=== PATIENT | male | born 1975 | race Caucasian/White ===

== ENCOUNTER → 2020-09-27 08:44 | Outpatient (CLI) | payer BC, SELFPAY ==
--- NOTE | 2020-09-27 08:55 | US_ITS ---
PROCEDURE: US GALLBLADDER CLINICAL INDICATION: UPPER ABD PAIN,UNSPECIFIED COMPARISON: No exams were available for comparison FINDINGS: Pancreas: Unremarkable though portion of the tail is obscured by bowel gas. Liver: Unremarkable. There is appropriate direction of blood flow within a non dilated portal vein. Right kidney: The right kidney measures 12.8 x 5.4 by 9.0 cm and appears sonographically normal. Gallbladder: The gallbladder is normal in size and shows partial septation near the neck. There is a trace amount of biliary sludge noted but no gallstones are seen. The common bile duct is normal in caliber. IMPRESSION: Trace biliary sludge otherwise essentially unremarkable study Dictated by: Dr. Bi Armenta MD 09/27/2020 13:43 Dr. Bi Armenta MD in [place] 09/27/2020 13:43
[2020-09-27 09:16] LABS: Basophils # 0.1 K/mm3 (0-0.2); Basophils % 0.9 % (0.1-2.0); Eosinophils # 0.5 K/mm3 (0.0-0.4); Eosinophils % 6.5 % (0.1-12.0); Hematocrit 48.9 % (42.0-52.0); Hemoglobin 16.3 g/dL (14.1-18.0); Lymphocytes # 2.1 K/mm3 (0.7-4.5); Lymphocytes % 26.2 % (10-50); Mean Corpuscular HGB Conc 33.3 g/dL (31.8-35.4); Mean Corpuscular Hemoglobin 30.6 pg (27.0-31.2); Mean Corpuscular Volume 91.9 fl (80-94); Mean Platelet Volume 7.9 fl (7.4-10.4); Monocytes # 0.4 K/mm3 (0.1-1.0); Monocytes % 5.4 % (1.7-9.3); Neutrophils # 4.9 K/mm3 (1.8-7.8); Platelet Count 323 K/mm3 (142-424); Red Blood Count 5.33 M/mm3 (4.60-6.20); Red Cell Distribution Width 12.8 % (11.5-17.5)
[2020-09-27 09:22] LABS: Alanine Aminotransferase 16 U/L (12-78); Albumin Level 4.3 g/dl (3.5-5.0); Albumin/Globulin Ratio 1.4 (1.1-1.8); Alkaline Phosphatase 72 U/L (38-126); Amylase 65 U/L (30-110); Aspartate Amino Transferase 26 U/L (17-59); Bilirubin,Total 0.4 mg/dl (0.2-1.3); Blood Urea Nitrogen 6 mg/dl (9-20); Calcium 9.7 mg/dl (8.4-10.2); Carbon Dioxide 31 mmol/L (22.0-30.0); Chloride 106 mmol/L (98-107); Estimated Glomerular Filt Rate 91 ml/min (>60); GFR (African American) 110 ML/MIN (>60); Globulin 3.1 g/dL (1.3-3.2); Glucose 109 mg/dl (74-100); Lipase 150 U/L (23-300); Sodium 141 mmol/L (136-145); Total Protein,Serum 7.4 g/dl (6.3-8.2)
[2020-09-28 14:59] LABS: H. pylori Breath Test Negative (Negative)
== END ==
PROVIDERS: Visit Provider Nurse Practitioner Family
DX: R10.10 Upper abdominal pain, unspecified (principal)
CPT/HCPCS: 36415; 76705; 80053; 82150; 83013; 83690; 85025

== ENCOUNTER 2021-12-03 20:26 | Inpatient (IN) | payer BC, SELFPAY ==
[2021-12-03] VITALS (9 sets, daily range): BP systolic 142–181; BP diastolic 97–110; PULSE 70–90; RESP 14–18; TEMP 36.7–36.9; O2SAT 94–99; BMI 24.3; BMI 24.0
--- NOTE | 2021-12-03 20:32 | ECG_ITS ---
APPROVED REPORT Exam: Resting ECG HR:91 bpm ECG Measurements Heart Rate 91 AXES KS 140 P 77 QRSd 101 QRS 71 QT 351 T 46 QTc 400 Conclusion SINUS RHYTHM WITH SINUS ARRHYTHMIA NORMAL ECG UNCONFIRMED REPORT Electronically signed by : Tee Eisenberg MD 12/05/2021 21:11:11
--- NOTE | 2021-12-03 20:32 | XR_ITS ---
PROCEDURE INFORMATION: Exam: XR Chest Exam date and time: 12/03/2021 8:32 PM Age: 46 years old Clinical indication: Sternal or substernal pain; Additional info: Chest pain TECHNIQUE: Imaging protocol: XR of the chest. Views: 2 views. COMPARISON: No relevant prior studies available. FINDINGS: Lungs: Stigmata of old granulomatous disease. Pleural spaces: Unremarkable. No pleural effusion. No pneumothorax. Heart/Mediastinum: Unremarkable. No cardiomegaly. Bones/joints: Unremarkable. IMPRESSION: No acute findings.
--- NOTE | 2021-12-03 20:40 | PC.NURSE ---
pt going to xray at this time
--- NOTE | 2021-12-03 20:40 | HMH.EDCP ---
ED Disposition Clinical Impression: Unstable angina pectoris, Tobacco use, Elevated troponin Hyperlipidemia Qualifiers: Hyperlipidemia type: unspecified Qualified Code(s): E78.5 - Hyperlipidemia, unspecified Disposition: Admitted As Inpatient Condition on Discharge: Good Referrals: Provider,Referral, [Primary Care Provider] - - Critical Care Critical Care Time: No Attestation: On , the high probability of a clinically significant, sudden or life threatening deterioration of the following system(s) required my full and direct attention, intervention and personal management. The time I documented below is in addition to time spent performing reported procedures but includes the following listed in this critical care notation. Medical Decision Making - Medical Records Medical records reviewed: Yes: I reviewed the patient's medical records. - [place] Inquiry Pt receiving controlled substance: No Vital Signs: 12/03/21 20:26 12/03/21 20:51 12/03/21 21:00 Temperature 98.1 F Temperature Source Oral Pulse Rate 79 79 Pulse Rate [Left Radial] 90 Respiratory Rate 16 15 16 Blood Pressure 152/98 H 142/101 H Blood Pressure [Left Arm] 181/110 H Blood Pressure Mean Blood Pressure Mean [Left Arm] 133 02 Sat by Pulse Oximetry 99 98 99 Oxygen Delivery Method Room Air Room Air Room Air 12/03/21 21:13 12/03/21 21:19 Temperature Temperature Source Pulse Rate 77 84 Pulse Rate [Left Radial] Respiratory Rate 14 15 Blood Pressure 164/109 H 158/99 H Blood Pressure [Left Arm] Blood Pressure Mean 124 118 Blood Pressure Mean [Left Arm] 02 Sat by Pulse Oximetry 99 99 Oxygen Delivery Method - Lab Data Lab results reviewed: Yes: I reviewed the patient's lab results. Lab Results 12/03/21 20:37: WBC 11.8 H, RBC 5.19, Hgb 16.0, Hct 47.9, MCV 92.2, MCH 30.7, MCHC 33.3, RDW 13.2, Plt Count 388, MPV 8.1, Neut % (Auto) 66.2, Lymph % (Auto) 21.3, [place] % (Auto) 4.9, Eos % (Auto) 4.5, Baso % (Auto) 3.2 H, Neut # (Auto) 7.8, Lymph # (Auto) 2.5, [place] # (Auto) 0.6, Eos # (Auto) 0.5 H, Baso # (Auto) 0.4 H 12/03/21 20:37: Sodium 137, Potassium 3.1 L, Chloride 97 L, Carbon Dioxide 31 H, Anion Gap 12.1, BUN 7 L, Creatinine 0.70, Estimated Creat Clear 130, Estimated GFR 121, Est GFR ( Amer) 146, Glucose 111 H, Calcium 9.9, Total Bilirubin 0.4, Direct Bilirubin 0.2, Conjugated Bilirubin 0.0, Indirect Bilirubin 0.2, Unconjugated Bilirubin 0.2, AST 23, ALT 19, Alkaline Phosphatase 67, Troponin I 0.08 H, C-Reactive Protein 1.3, Total Protein 7.2, Albumin 4.2 12/03/21 20:37: ESR 7 12/03/21 20:37: Procalcitonin 0.050 12/03/21 20:37: Triglycerides 290 H, Cholesterol 227 H, LDL Cholesterol Direct 147.66 H, VLDL Cholesterol 58 H, HDL Cholesterol 38 L, Cholesterol/HDL Ratio 6.0 H Result diagrams: 12/03/21 20:37 12/03/21 20:37 Orders (Tests/Meds): ED MEDICATIONS Generic Name Dose Route Start Last Admin Trade Name Freq PRN Reason Stop Dose Admin Sodium Chloride 1,000 mls @ 999 mls/hr 12/03/21 20:45 12/03/21 20:39 Sod Chlor 0.9% 1000ml Bag IV 12/03/21 21:45 999 mls/hr .[id number] JESSICA Administration Discontinued Medications Generic Name Dose Route Start Last Admin Trade Name Freq PRN Reason Stop Dose Admin Aspirin 324 mg 12/03/21 20:34 12/03/21 20:39 Aspirin 81mg Chewable Tablet PO 12/03/21 20:35 324 mg ONCE ONE Administration Nitroglycerin 1 gm 12/03/21 21:25 12/03/21 21:26 Nitroglycerin 1 Gm Ointment TD 12/03/21 21:26 1 gm ONCE ONE Administration ORDERS Category Date Time Status Troponin I Q3H Lab 12/03/21 23:45 Ordered Troponin I Q3H Lab 12/04/21 02:45 Ordered - ECG Data Tracing #1 Normal Sinus Rhythm: Yes Ischemic changes: non-specific ST-T wave changes - Physician Consults Physician Consulted: maria fernanda Reason -: Pt condition Medical Decision Narrative: has sx consistent with angina witrh sig risk factors and elevated trop and will admit w
--- NOTE | 2021-12-03 20:42 | PC.NURSE ---
pt back from [facility] ER dr speaking with pt at this time
[2021-12-03 20:48] LABS: Basophils # 0.4 K/mm3 (0-0.2); Basophils % 3.2 % (0.1-2.0); Eosinophils # 0.5 K/mm3 (0.0-0.4); Eosinophils % 4.5 % (0.1-12.0); Hematocrit 47.9 % (42.0-52.0); Lymphocytes # 2.5 K/mm3 (0.7-4.5); Lymphocytes % 21.3 % (10-50); Mean Corpuscular HGB Conc 33.3 g/dL (31.8-35.4); Mean Corpuscular Hemoglobin 30.7 pg (27.0-31.2); Mean Corpuscular Volume 92.2 fl (80-94); Mean Platelet Volume 8.1 fl (7.4-10.4); Monocytes # 0.6 K/mm3 (0.1-1.0); Monocytes % 4.9 % (1.7-9.3); Neutrophils # 7.8 K/mm3 (1.8-7.8); Neutrophils % 66.2 % (37.0-80.0); Platelet Count 388 K/mm3 (142-424); Red Blood Count 5.19 M/mm3 (4.60-6.20); Red Cell Distribution Width 13.2 % (11.5-17.5); White Blood Count 11.8 K/mm3 (4.8-10.8)
[2021-12-03 20:58] LABS: Alanine Aminotransferase 19 U/L (12-78); Albumin Level 4.2 g/dl (3.5-5.0); Alkaline Phosphatase 67 U/L (38-126); Anion Gap 12.1 mEq/L (5-15); Aspartate Amino Transferase 23 U/L (17-59); Bilirubin,Direct 0.2 mg/dl (0.0-0.4); Bilirubin,Indirect 0.2 mg/dL (0.0-0.9); Bilirubin,Total 0.4 mg/dl (0.2-1.3); Bilirubin,Unconjugated 0.2 mg/dL (0.0-1.1); Blood Urea Nitrogen 7 mg/dl (9-20); Calcium 9.9 mg/dl (8.4-10.2); Carbon Dioxide 31 mmol/L (22.0-30.0); Chloride 97 mmol/L (98-107); Creatinine Clearance Estimated 130 mL/min (50-200); Estimated Glomerular Filt Rate 121 ml/min (>60); GFR (African American) 146 ML/MIN (>60); Glucose 111 mg/dl (74-100); Potassium 3.1 mmoL/L (3.5-5.1); Sodium 137 mmol/L (136-145); Total Protein,Serum 7.2 g/dl (6.3-8.2)
[2021-12-03 21:00] LABS: Cholesterol 227 mg/dl (140-200); HDL Cholesterol 38 mg/dl (40-60); Triglycerides 290 mg/dl (30-150); VLDL Cholesterol 58 mg/dL (0-40)
[2021-12-03 21:03] LABS: C-Reactive Protein 1.3 mg/L (0-4)
[2021-12-03 21:10] LABS: Direct LDL Cholesterol 147.66 mg/dL (100-129)
[2021-12-03 21:12] LABS: Troponin I 0.08 ng/ml (0.00-0.034)
[2021-12-03 21:14] LABS: Erythrocyte Sedimentation Rate 7 mm/hr (0-15)
[2021-12-03 21:58] LABS: Coronavirus 19, PCR Not Detected (NotDetected)
[2021-12-03 21:59] LABS: Influenza A, PCR Not Detected (NotDetected); Influenza B, PCR Not Detected (NotDetected)
--- NOTE | 2021-12-03 22:33 | PC.NURSE ---
patient up to floor via wheelchair @ this time.
[2021-12-04] VITALS (20 sets, daily range): BP systolic 97–154; BP diastolic 57–95; PULSE 56–78; RESP 16–30; TEMP 36.4–36.8; O2SAT 95–100
--- NOTE | 2021-12-04 | IR_ITS ---
APPROVED REPORT Patient Location: Inpatient Dairy Manufacturing Technologist: HAI Olmedo RT (R) PROCEDURES Left heart catheterization Left ventriculogram Selective coronary angiogram INDICATION Elevated troponin/acute coronary syndrome Informed consent was obtained prior to the procedure. COMPLICATIONS None Estimated Blood Loss: Less than 10 mls TECHNIQUE One percent lidocaine used to anesthetize the right anterior aspect of the wrist. The right radial artery was accessed via the Seldinger technique. A 6 Chinese sheath was placed in the right radial artery. 2.5 mg of verapamil, 800 mcg of nitroglycerin, 1mg Lidocaine and 5000 U Heparin were given through the arterial sheath. The papa catheter was also used to perform left heart catheterization, left ventriculogram and selective coronary angiogram. At the end of the procedure the sheath was removed good hemostasis was achieved using Traclet band, patient was transferred to the postop holding area in stable condition. ANGIOGRAPHIC RESULTS The left main artery Normal The left anterior descending artery Has a proximal eccentric 30 to 40% stenosis with mild mid vessel 10 to 20% stenoses. A large first diagonal artery has a proximal to mid vessel 40% stenosis The circumflex artery Is codominant and has proximal to mid vessel 30% stenoses The right coronary artery Is codominant and has a mid vessel hazy 30 to 40% stenosis The MCKEON ventriculogram reveals Preserved at 55 to 60% The left ventricular end-diastolic pressure 10 mmHg IMPRESSION Minor coronary artery disease as described above accompanied by three-vessel JOHN-3 flow Preserved ejection fraction Normal left ventricular end-diastolic pressure PLAN 1. Aspirin 81 mg a day plus Plavix 75 mg daily for 1 year 2. LDL less than 55 to be achieved with high intensity statin 3. Medical management for the time being. Patient in acute coronary syndrome with elevated troponin therefore I do not recommend FFR interrogation as is not indicated in this particular patient. Given his JOHN-3 flow with coronary artery disease as described above I believe this is best managed medically for the time being. Start low-dose beta-blockers and JUANA inhibitor's if blood pressure will tolerate 4. In 4 weeks recommend exercise Myoview to determine if inferior or anterior ischemia is present 5. Immediate avoidance of tobacco products Electronically signed by : Edouard Hooks MD 12/04/2021 13:01:06
[2021-12-04 00:17] LABS: Troponin I 0.11 ng/ml (0.00-0.034)
[2021-12-04 03:04] LABS: Basophils # 0.3 K/mm3 (0-0.2); Basophils % 2.6 % (0.1-2.0); Eosinophils # 0.5 K/mm3 (0.0-0.4); Eosinophils % 4.8 % (0.1-12.0); Hematocrit 47.2 % (42.0-52.0); Hemoglobin 15.3 g/dL (14.1-18.0); Lymphocytes # 2.9 K/mm3 (0.7-4.5); Lymphocytes % 26.7 % (10-50); Mean Corpuscular HGB Conc 32.5 g/dL (31.8-35.4); Mean Corpuscular Hemoglobin 30.1 pg (27.0-31.2); Mean Corpuscular Volume 92.6 fl (80-94); Mean Platelet Volume 8.2 fl (7.4-10.4); Monocytes # 0.6 K/mm3 (0.1-1.0); Monocytes % 5.6 % (1.7-9.3); Neutrophils # 6.5 K/mm3 (1.8-7.8); Neutrophils % 60.2 % (37.0-80.0); Platelet Count 347 K/mm3 (142-424); Red Blood Count 5.09 M/mm3 (4.60-6.20); Red Cell Distribution Width 13.3 % (11.5-17.5); White Blood Count 10.8 K/mm3 (4.8-10.8)
[2021-12-04 03:13] LABS: Chloride 106 mmol/L (98-107); Sodium 139 mmol/L (136-145)
[2021-12-04 03:14] LABS: Potassium 3.5 mmoL/L (3.5-5.1)
[2021-12-04 03:16] LABS: Anion Gap 7.5 mEq/L (5-15); Blood Urea Nitrogen 6 mg/dl (9-20); Calcium 9.7 mg/dl (8.4-10.2); Carbon Dioxide 29 mmol/L (22.0-30.0); Creatinine Clearance Estimated 129 mL/min (50-200); Estimated Glomerular Filt Rate 121 ml/min (>60); GFR (African American) 146 ML/MIN (>60); Glucose 117 mg/dl (74-100)
[2021-12-04 03:17] LABS: Magnesium 1.5 mg/dl (1.6-2.3)
[2021-12-04 03:29] LABS: Troponin I 0.14 ng/ml (0.00-0.034)
--- NOTE | 2021-12-04 06:54 | PC.NURSE ---
Pt is alert and oriented. Oriented to room and hospital policies. Pt voiced understanding to all. Call ansari within reach. Pts K+ noted low but no replacement during nightime. Pt place on LR and repeat Labs in the am. Pt able to make all needs known. Call ansari within reach
--- NOTE | 2021-12-04 07:13 | P.CONPHA_ITS ---
[facility] Pharmacy VTE Monitoring - Patient Demographics Admission date: 12/03/21 Report Date: 12/04/21 Time: 07:13 Allergies/Adverse Reactions: Patient Allergies No Known Allergies Allergy (Verified 09/01/19 12:54) Height: 1.7 m Weight: 69.672 kg Patient Problems: Current Active Problems Unstable angina pectoris (Acute) Tobacco use (Acute) Hyperlipidemia (Acute) Elevated troponin (Acute) - VTE Risk Labs: VTE Related Lab Results Hgb 15.3 g/dL (14.1-18.0) 12/04/21 02:55 Hct 47.2 % (42.0-52.0) 12/04/21 02:55 Plt Count 347 K/mm3 (142-424) 12/04/21 02:55 BUN 6 mg/dl (9-20) L 12/04/21 02:55 Creatinine 0.70 mg/dl (0.66-1.25) 12/04/21 02:55 Estimated Creat Clear 129 mL/min (50-200) 12/04/21 02:55 Was VTE Risk Assessment Performed: Yes VTE Score: 1 VTE Risk Level: Very Low Risk - Prophylaxis VTE Prophylaxis Ordered?: Yes Types of VTE Prophylaxis: TEDS Knee High Location of Applied Device: Bilateral Lower Extremeties
--- NOTE | 2021-12-04 07:34 | HMH.CNCARD ---
History of Present Illness Consult date: 12/04/21 Requesting physician: Alexei Garza Consult reason: chest pain Chief complaint: NSTEMI Additional Medical History:: 1. Ongoing tobacco use of 1 pack/day for at least 20 years 2. Untreated hypertension 3. Family history of cardiovascular disease with father having a stroke and mother having an enlarged heart 4. Hyperlipidemia 5. Non-ST elevation [place], 12/03/2021 A. Echocardiogram preliminary shows decreased septal wall motion with EF 45-50% History of present illness: 46-year-old white male presented to the emergency department for 2-day history of intermittent chest discomfort radiating to the neck and the jaw and into the back of the head. Symptoms would last less than 5 minutes each time but would recur with activity. He denies any nausea, vomiting or diaphoresis. Evaluation in the emergency room revealed elevated troponins and patient was subsequently admitted for unstable angina/non-ST elevation [place]. He was started on nitroglycerin paste with no further chest pain overnight. EKG is sinus rhythm with poor R wave progression anteriorly. Preliminary echocardiogram shows mildly decreased EF at about 45-50% with septal wall motion abnormality. [facility] History Medical History: Denies:: Cancer, Diabetes Mellitus Type 1, Diabetes Mellitus Type 2, Internal Pacemaker, MRSA *Have you ever received a pneumonia vaccine?: No *Have you received a flu vaccine this season?: Yes Laterality Cases: Right: Carpal Tunnel Release Other Surgeries: No: Pacemaker Amputation: No Fractures: Yes (ELBOW AND HAND) - *Social History Last grade of school completed: Some college Smoking Status: Current every day smoker Tobacco Type: cigarettes # Packs/Day (cigarettes): 1 Alcohol Intake: never *Occupational Status:: employed Housing: house Household Members: spouse, children, caregiver, adopted family *Travel in the last 8 weeks: None Family Hx:: Diabetes, Hyperlipidemia, Hypertension, Stroke Meds Home Medications Medication Instructions Recorded Confirmed Type No Known Home Medications 12/03/21 12/03/21 History Allergies Allergy/AdvReac Type Severity Reaction Status Date / Time No Known Allergies Allergy Verified 09/01/19 12:54 Exam Vital signs and Labs for Last 24 Hours: Temp Pulse Resp BP Pulse Ox 98.1 F 70 18 132/76 97 12/04/21 03:52 12/04/21 04:00 12/04/21 03:52 12/04/21 03:52 12/04/21 03:52 Laboratory Results - last 24 hr 12/03/21 20:37: WBC 11.8 H, RBC 5.19, Hgb 16.0, Hct 47.9, MCV 92.2, MCH 30.7, MCHC 33.3, RDW 13.2, Plt Count 388, MPV 8.1, Neut % (Auto) 66.2, Lymph % (Auto) 21.3, [place] % (Auto) 4.9, Eos % (Auto) 4.5, Baso % (Auto) 3.2 H, Neut # (Auto) 7.8, Lymph # (Auto) 2.5, [place] # (Auto) 0.6, Eos # (Auto) 0.5 H, Baso # (Auto) 0.4 H 12/03/21 20:37: Sodium 137, Potassium 3.1 L, Chloride 97 L, Carbon Dioxide 31 H, Anion Gap 12.1, BUN 7 L, Creatinine 0.70, Estimated Creat Clear 130, Estimated GFR 121, Est GFR ( Amer) 146, Glucose 111 H, Calcium 9.9, Total Bilirubin 0.4, Direct Bilirubin 0.2, Conjugated Bilirubin 0.0, Indirect Bilirubin 0.2, Unconjugated Bilirubin 0.2, AST 23, ALT 19, Alkaline Phosphatase 67, Troponin I 0.08 H, C-Reactive Protein 1.3, Total Protein 7.2, Albumin 4.2 12/03/21 20:37: ESR 7 12/03/21 20:37: Procalcitonin 0.050 12/03/21 20:37: Triglycerides 290 H, Cholesterol 227 H, LDL Cholesterol Direct 147.66 H, VLDL Cholesterol 58 H, HDL Cholesterol 38 L, Cholesterol/HDL Ratio 6.0 H 12/03/21 21:48: SARS-CoV-2 (PCR) Not detected, Influenza A Untype (PCR) Not detected, Influenza Type B (PCR) Not detected 12/03/21 23:50: Troponin I 0.11 H 12/04/21 02:55: Troponin I 0.14 H 12/04/21 02:55: WBC 10.8, RBC 5.09, Hgb 15.3, Hct 47.2, MCV 92.6, MCH 30.1, MCHC 32.5, RDW 13.3, Plt Count 347, MPV 8.2, Neut % (Auto) 60.2, Lymph % (Auto) 26.7, [place] % (Auto) 5.6, Eos % (Auto) 4.8, Baso % (Auto) 2.6 H, Neut # (Auto) 6.5, Lymph # (Auto) 2.9, [place] # (Auto) 0.6, Eos #
--- NOTE | 2021-12-04 08:00 | CA_ITS ---
APPROVED REPORT EXAM: Comprehensive 2D, Doppler, and color-flow Echocardiogram [employer] Operator: Marissa Link, RCS, RVS Ht: 5 ft 7 in Wt: 153lbs BSA: 1.80 BP: 158/99 mmHg Indications: CP radiating jaw pain, Elevated troponin, Smoker 2D Dimensions IVSd 0.88 cm LVEF (Visual) 45.00 % PWd 1.14 cm LA Volume 38.90 mL LVDd 5.02 cm LA Volume Index 21.60 mL/m2 (M/F) 16-34 LVDs 3.47 cm Aortic Root 3.08 cm Left Atrium 3.30 cm LVOT 1.96 cm (M/F) 1.5-2.5 M-Mode Dimensions RVDd 1.10 cm (0.9-2.6) LA Diam 3.34 cm (1.9-4.0) LVDd 5.38 cm (3.5-5.7) Ao Diam 3.01 cm (2.0-3.7) LVDs 3.92 cm (3.5-5.7) IVSd 1.03 cm (0.6-1.1) PWd 1.14 cm (0.6-1.1) EF (Teich) 52.40% EPSs 2.04 cm FS 27.10% EDV (Teich) 140.10 mL ESV (Teich) 66.70 mL LV Diastology E Decel Time 173.00 (160-240 msec) E/A Ratio 1.20 MED E' 7.30 (< 7 cm/sec) MED A' 8.40 cm/s E'/MED E' Ratio 10.58 (>14) LAT E' 10.50 (<10 cm/sec) LAT A' 8.10 cm/s E/LAT E' Ratio 7.35 (>14) Aortic Valve LVOT Max 94.00 (70-110 cm/s) LVOT VTI 19.24 cm AoV Peak Giacomo. 121.00 (50-130 cm/s) AO Peak GR. 5.90 mmHg AO Mean GR. 3.00 (<5 mmHg) AO VTI 24.63 (18-25 cm) MINH (VTI) 2.36 (2.5-4.5 cm2) Mitral Valve MV A Velocity 64.00 (40-130 cm/s) E/A Ratio 1.20 MV Decel. Time 173.00 (160-240 ms) Pulmonary Valve PV Peak Velocity 63.00 (50-150 cm/s) Left Ventricle Left atrium is mildly enlarged, left ventricle is normal size, there is no concentric left ventricular hypertrophy, estimated ejection fraction 50%, there appears to be mild hypokinesis involving the interventricular septum. Diastolic parameters are within normal range. Right Ventricle Right atrium and right ventricle are mildly enlarged with normal contractility. Aortic Valve Aortic valve is minimally thickened and fibrosed there is no aortic stenosis or aortic insufficiency. Mitral Valve Mitral valve grossly normal, there is trace mitral regurgitation. Tricuspid Valve Tricuspid valve grossly normal, there is trace tricuspid regurgitation, tricuspid regurgitation jet velocity is inadequate for calculation of the right ventricular systolic pressure. Pulmonic Valve Pulmonic valve is poorly visualized. Great Vessels Aortic root is normal size. Inferior vena cava is normal size with normal spectral collapse. Pericardium No significant pericardial effusion noted. Conclusion 1. Mild biatrial enlargement, normal left ventricular size, estimated ejection fraction 50% with segmental wall motion abnormality described above, diastolic parameters are within normal range. 2. Mildly enlarged right ventricle with normal contractility. 3. Trace mitral and tricuspid regurgitation. 4. No significant pericardial effusion. 5. Inferior vena cava is normal size with normal inspiratory collapse. Electronically signed by : Clement Almazan MD 12/04/2021 10:01:31
--- NOTE | 2021-12-04 14:45 | HMH.HPDC ---
General - General Admission date:: 12/03/21 Discharge date: 12/04/21 *Admission Date: 12/03/21 *Chief complaint: chest pain *History of present illness: 46-year-old male presented to the emergency department for 2-day history of intermittent chest discomfort radiating to the neck and the jaw and into the back of the head. Pt states symptoms for about 5 minutes each time but would return with activity. He denies any nausea, vomiting or diaphoresis. Emergency room revealed elevated troponins and patient was admitted for unstable angina/non-ST elevation [place]. He was started on nitroglycerin paste with no further chest pain overnight. cardiology consult [facility] History I have reviewed the patient's past medical history: Yes Medical History: Denies:: Cancer, Diabetes Mellitus Type 1, Diabetes Mellitus Type 2, Internal Pacemaker, MRSA *Have you ever received a pneumonia vaccine?: No *Have you received a flu vaccine this season?: Yes Laterality Cases: Right: Carpal Tunnel Release Other Surgeries: No: Pacemaker Amputation: No Fractures: Yes (ELBOW AND HAND) - *Social History Last grade of school completed: Some college Smoking Status: Current every day smoker Tobacco Type: cigarettes # Packs/Day (cigarettes): 1 Alcohol Intake: never *Occupational Status:: employed Housing: house Household Members: spouse, children, caregiver, adopted family *Travel in the last 8 weeks: None Family Hx:: Diabetes, Hyperlipidemia, Hypertension, Stroke Review of Systems - Review of Systems Review of systems:: pertinent systems reviewed and negative unless documented below - Constitutional Denies body ache(s) - Eyes Denies blurry vision - ENT Denies bleeding gums - *Cardiovascular Reports chest pain, Reports chest pain at rest, Reports chest pain with activity - *Respiratory Denies chest congestion - *Gastrointestinal Denies change in bowel habits - *Genitourinary Denies urinary hesitancy - *Musculoskeletal Denies joint pain - Integumentary/Breasts Denies bleeding lesions - *Neurologic Denies abnormal hearing, Denies headache(s), Denies seizure-like activity - Psychiatric Denies abnormal sleep pattern - Endocrine Denies excessive sweating - Hematologic/Lymphatic Denies easy bruising - Allergic/Immunologic Denies itchy eyes Exam Vital signs and Labs for Last 24 Hours: Temp Pulse Resp BP Pulse Ox 98.1 F 56 L 20 117/78 97 12/04/21 13:45 12/04/21 14:15 12/04/21 14:15 12/04/21 14:15 12/04/21 14:15 Laboratory Results - last 24 hr 12/03/21 20:37: WBC 11.8 H, RBC 5.19, Hgb 16.0, Hct 47.9, MCV 92.2, MCH 30.7, MCHC 33.3, RDW 13.2, Plt Count 388, MPV 8.1, Neut % (Auto) 66.2, Lymph % (Auto) 21.3, [place] % (Auto) 4.9, Eos % (Auto) 4.5, Baso % (Auto) 3.2 H, Neut # (Auto) 7.8, Lymph # (Auto) 2.5, [place] # (Auto) 0.6, Eos # (Auto) 0.5 H, Baso # (Auto) 0.4 H 12/03/21 20:37: Sodium 137, Potassium 3.1 L, Chloride 97 L, Carbon Dioxide 31 H, Anion Gap 12.1, BUN 7 L, Creatinine 0.70, Estimated Creat Clear 130, Estimated GFR 121, Est GFR ( Amer) 146, Glucose 111 H, Calcium 9.9, Total Bilirubin 0.4, Direct Bilirubin 0.2, Conjugated Bilirubin 0.0, Indirect Bilirubin 0.2, Unconjugated Bilirubin 0.2, AST 23, ALT 19, Alkaline Phosphatase 67, Troponin I 0.08 H, C-Reactive Protein 1.3, Total Protein 7.2, Albumin 4.2 12/03/21 20:37: ESR 7 12/03/21 20:37: Procalcitonin 0.050 12/03/21 20:37: Triglycerides 290 H, Cholesterol 227 H, LDL Cholesterol Direct 147.66 H, VLDL Cholesterol 58 H, HDL Cholesterol 38 L, Cholesterol/HDL Ratio 6.0 H 12/03/21 21:48: SARS-CoV-2 (PCR) Not detected, Influenza A Untype (PCR) Not detected, Influenza Type B (PCR) Not detected 12/03/21 23:50: Troponin I 0.11 H 12/04/21 02:55: Troponin I 0.14 H 12/04/21 02:55: WBC 10.8, RBC 5.09, Hgb 15.3, Hct 47.2, MCV 92.6, MCH 30.1, MCHC 32.5, RDW 13.3, Plt Count 347, MPV 8.2, Neut % (Auto) 60.2, Lymph % (Auto) 26.7, [place] % (Auto) 5.6, Eos % (Auto) 4.8, Baso % (Auto)
--- NOTE | 2021-12-04 15:21 | HMH.PHAINT ---
DISCHARGE MEDICATION COUNSELING PROVIDED. DISCUSSED THE FOLLOWING MEDICATIONS: -NICOTINE PATCHES (PATIENT HAS USED BEFORE, WATCH FOR SKIN IRRITATION) -ATORVASTATIN (TAKE AT BEDTIME, WATCH FOR MUSCLE PAIN) -BISOPROLOL (TAKE DAILY, WATCH FOR DIZZINESS, LIGHTHEADEDNESS) -IRBESARTAN (TAKE DAILY, WATCH FOR DIZZINESS, LIGHTHEADEDNESS, HEADACHE) -ASPIRIN (TAKE DAILY, WATCH FOR SIGNS/SYMPTOMS OF BLEEDING, IF YOU BUMP HEAD BE SEEN) -CLOPIDOGREL (TAKE DAILY, WATCH FOR SIGNS/SYMPTOMS OF BLEEDING, IF YOU BUMP HEAD BE SEEN)
--- NOTE | 2021-12-04 23:17 | PC.NURSE ---
Pt left with at 2024. Pt and was instructed on post cath instructions and was given a copy to take home. Pt voiced understanding of all information given. Voiced I will not drive for 24hrs and I will not lift more than 1 lbs with this arm. Referring to his procedure arm. Pt voiced understanding that his appt was scheduled for f/u and would take all the medications prescribed to him. Pt was grateful for the services and felt confident that he could be dc'd home at this time. Pt left via ambulatory with .
--- NOTE | 2021-12-05 13:57 | CARE MANAGER ---
Spoke with patient in post discharge phone interview, patient states that he is dong well and has no issues at this time. He is aware of his follow-up appoinments and got his medication. No further issues.
== END 2021-12-04 20:30 | disposition home or self-care (01) | DRG 282 ==
LOC: ER 21:14 → 2ND 21:43
PROVIDERS: Internal Medicine; Admitting Provider Emergency Medicine; Emergency Provider Emergency Medicine; Visit Provider Emergency Medicine
PROC: B2111ZZ Fluoroscopy of Multiple Coronary Arteries using Low Osmolar Contrast (ICD-10-PCS; principal; 2021-12-04 12:00)
DX: I21.4 Non-ST elevation (NSTEMI) myocardial infarction (principal); I25.110 Atherosclerotic heart disease of native coronary artery with unstable angina pectoris; Z20.822 Contact with and (suspected) exposure to COVID-19; F17.210 Nicotine dependence, cigarettes, uncomplicated; Z71.6 Tobacco abuse counseling
CPT/HCPCS: 36415; 71046; 80048; 80061; 80076; 83735; 84145; 84484; 85025; 85651; 86140; 93005; 93306; 93458; 99152; 99285; C1725; C1769; C9803; J1644; Q9967; U0003; U0005

== ENCOUNTER → 2022-01-03 07:09 | Outpatient (CLI) | payer BC, SELFPAY ==
--- NOTE | 2022-01-03 07:14 | NM_ITS ---
APPROVED REPORT Exam: Nuclear Stress Test Indication: SOB, Hx of AR, CAD, Fatigue, HTN, High cholesterol, Former tobacco use, Family history Patient Location: Outpatient Stress Tech: Denise Littlejohn MD Tech:Lenora Llamas, ARRT, RT (R)(N) Ht: 5 ft 7 in Wt: 150 lbs HR: 69 bpm BP: 135/85 mmHg BSA: 1.79 m2 TID: 1.05 BMI: 23.4 History: SOB, Hx of AR, CAD, Fatigue, HTN, High cholesterol, Former tobacco use, Family history Procedure: Patient exercised on Maximino protocol 9:30 minutes and sec, resting heart rate 69 bpm, resting blood pressure 135/85 mmHg, with exercise maximum heart rate achived was 149 bpm which is 86 % of the maximum predicted heart rate and blood pressure was 187/97 mmHg. Test was stopped due to SOB. Patient denied any complaint of chest pain. Patient has good exercise capacity, achieved 10.1 METs of workload on treadmill, the blood pressure response to exercise was Adequate. Electrocardiogram Resting electrocardiogram shows sinus rhythm, with exercise there is [address] segment depression noted from the baseline EKG. The EKG portion of the exercise Myoview is positive for ischemia. Cardiac Stress and Resting SPECT Images: Cardiac Stress and Resting SPECT images were obtained using technetium 99m Myoview 32.9 mCi stress and 10.92 mCi at rest. Gated SPECT analysis of segmental wall motion and calculation of the ejection fraction also done, prone images were also obtained. Cardiac stress and rest SPECT images show a fixed defect in the inferior wall with normal contractility gated SPECT is likely secondary to soft tissue attenuation from the diaphragm, in addition of this mildly reversible ischemia involving the anterior apical wall. Computer derived ejection fraction is 46% with no obvious regional wall motion abnormality, right ventricle is mildly enlarged with normal contractility. Conclusion: 1. The EKG portion of the exercise Myoview is positive for ischemia, patient has good exercise capacity achieved 10.1 METs of workload on treadmill, the blood pressure response to exercise was adequate, there was no exercise-induced chest discomfort. 2. Scintigraphic evidence of small reversible ischemia involving the anterior apical wall, computer derived ejection fraction 46% with no regional wall motion abnormality, right ventricle is mildly enlarged with normal contractility. 3. Abnormal exercise Myoview study. Electronically signed by : Clement Almazan MD 01/03/2022 11:25:11
--- NOTE | 2022-01-03 09:06 | HMH.ITSHM ---
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 []BISOPROLOL NICOTINE PATCH AVAPRO CLOPIDOGREL ATORVASTATIN ASA
--- NOTE | 2022-01-03 09:48 | CA_ITS ---
APPROVED REPORT Exam: Exercise Treadmill Technologist: Denise Fu, Ht: 5 ft 7 in Wt: 150 lbs BSA: 1.79 m2 HR: 60 bpm BP: 143/87 mmHg Medical History Medications: Irbesartan,,,,, Aspirin,,,,, Atorvastatin,,,,, Nicotine,,,,, CloPIdogrel,,,,, BisOPROLOL Fumarate,,,,, Stress Test Details Test: Maximino HR Resting HR: 69 bpm Max Heart Rate (APMHR): 173.945827 bpm Max HR Achieved: 149 bpm Target HR (85% APMHR): 147.985500 bpm % of APMHR: 86.13 Recovery HR: 72 bpm BP Resting BP: 135/85 mmHg Max BP: 187/97 mmHg Recovery BP: 147.0/94.0 mmHg ECG Resting ECG: NSR, normal Clinical Exercise duration: 09:30 min Highest Stage Achieved: IV Exercise capacity: 10.1 METs Stress ECG Conclusion Exercised 9:30 into stage 4 of Maximino Protocol. Max HR: 149 % of PM: 86% Max BP: 187/97 MET's: 10.1 Test stopped due to: SOA, Leg fatigue Symptoms: No CP. Arrhythmias/Ectopy: Rare PAC & PVC. ST-T Changes: 1-2mm of horizontal & downsloping ST depression inferiorly & laterally. Conclusion: EKG changes (+) for ischemia. Myoview images reported separately. Test Summary REST . . . . . . . Sitting REST . . . . . . . Standing REST 02:56 0.0 0.0 69 . 135/ 85 . . Stage 1 01:00 10.0 1.7 86 . . . . Stage 1 02:00 10.0 1.7 90 . . . . Stage 1 03:00 10.0 1.7 94 . 136/ 85 . . Stage 2 01:00 12.0 2.5 103 . . . . Stage 2 02:00 12.0 2.5 109 . . . . Stage 2 03:00 12.0 2.5 118 . 172/ 84 . . Stage 3 01:00 14.0 3.4 127 . . . . Stage 3 . . . . . . . Cardiolite injected Stage 3 02:00 14.0 3.4 133 . . . . Stage 3 03:00 14.0 3.4 136 . . . . Stage 4 00:30 16.0 4.2 147 . . . Stop exercise at 09:30 RECOVERY 01:00 0.0 0.0 122 . . . . RECOVERY 02:00 0.0 0.0 98 . 187/ 97 . . RECOVERY 03:00 0.0 0.0 74 . 187/ 97 . . RECOVERY 04:00 0.0 0.0 82 . 148/ 93 . . RECOVERY 05:00 0.0 0.0 72 . 147/ 94 . . RECOVERY 05:23 0.0 0.0 79 . 147/ 94 . . Electronically signed by : Clement Almazan MD 01/03/2022 11:22:11
== END ==
PROVIDERS: PCP Emergency Medicine; Visit Provider Physician Assistant
DX: R06.00 Dyspnea, unspecified (principal); I21.4 Non-ST elevation (NSTEMI) myocardial infarction; I25.10 Atherosclerotic heart disease of native coronary artery without angina pectoris; I10 Essential (primary) hypertension; E78.5 Hyperlipidemia, unspecified; Z72.0 Tobacco use
CPT/HCPCS: 78452; 93017; A9502

== ENCOUNTER → 2022-01-08 13:23 | Outpatient (CLI) | payer BC, SELFPAY ==
[2022-01-08 14:28] LABS: Basophils # 0.1 K/mm3 (0-0.2); Basophils % 0.7 % (0.1-2.0); Eosinophils # 0.4 K/mm3 (0.0-0.4); Eosinophils % 4.2 % (0.1-12.0); Hematocrit 42.6 % (42.0-52.0); Hemoglobin 15.2 g/dL (14.1-18.0); Lymphocytes # 2.2 K/mm3 (0.7-4.5); Lymphocytes % 22.9 % (10-50); Mean Corpuscular HGB Conc 35.6 g/dL (31.8-35.4); Mean Corpuscular Hemoglobin 30.9 pg (27.0-31.2); Mean Corpuscular Volume 86.8 fl (80-94); Mean Platelet Volume 7.4 fl (7.4-10.4); Monocytes # 0.6 K/mm3 (0.1-1.0); Monocytes % 6.8 % (1.7-9.3); Neutrophils # 6.2 K/mm3 (1.8-7.8); Neutrophils % 65.4 % (37.0-80.0); Platelet Count 352 K/mm3 (142-424); Red Blood Count 4.91 M/mm3 (4.60-6.20); Red Cell Distribution Width 12.7 % (11.5-17.5); White Blood Count 9.4 K/mm3 (4.8-10.8)
[2022-01-08 14:31] LABS: Anion Gap 10.6 mEq/L (5-15); Blood Urea Nitrogen 4 mg/dl (9-20); Calcium 9.2 mg/dl (8.4-10.2); Carbon Dioxide 30 mmol/L (22.0-30.0); Chloride 103 mmol/L (98-107); Estimated Glomerular Filt Rate 104 ml/min (>60); GFR (African American) 125 ML/MIN (>60); Glucose 81 mg/dl (74-100); Potassium 3.6 mmoL/L (3.5-5.1); Sodium 140 mmol/L (136-145)
== END ==
PROVIDERS: Physician Assistant; PCP Emergency Medicine; Visit Provider Internal Medicine
DX: Z01.812 Encounter for preprocedural laboratory examination (principal); Z20.822 Contact with and (suspected) exposure to COVID-19; I20.8 Other forms of angina pectoris; R00.2 Palpitations; I25.118 Atherosclerotic heart disease of native coronary artery with other forms of angina pectoris; E78.5 Hyperlipidemia, unspecified; I10 Essential (primary) hypertension; I21.4 Non-ST elevation (NSTEMI) myocardial infarction; Z72.0 Tobacco use; I63.9 Cerebral infarction, unspecified
CPT/HCPCS: 36415; 80048; 85025; C9803; U0003; U0005

== ENCOUNTER 2022-01-09 08:23 | Day surgery (SDC) | payer BC, SELFPAY ==
[2022-01-09] VITALS (14 sets, daily range): BP systolic 95–155; BP diastolic 57–108; PULSE 62–72; RESP 17–20; O2SAT 95–100; BMI 24.1
--- NOTE | 2022-01-09 07:06 | IR_ITS ---
APPROVED REPORT Patient Location: Outpatient Wire Bender Hand: HAI Camacho RT (R) PROCEDURES Selective coronary angiogram FFR to the LAD Drug-eluting stent deployment to the proximal ID FFR to the dominant right coronary Drug-eluting stent deployment to the proximal mid dominant right coronary in a contiguous manner INDICATION Recalcitrant angina pectoris, High risk abnormal Myoview with anterior apical ischemia, Coronary artery disease, Ischemic response to adenosine in the LAD with an FFR index of 0.78, Ischemic response to adenosine in the dominant right coronary artery with an FFR index of 0.74 Informed consent was obtained prior to the procedure. COMPLICATIONS None Estimated Blood Loss: Less than 10 mls TECHNIQUE One percent lidocaine used to anesthetize the right anterior aspect of the wrist. The right radial artery was accessed via the Seldinger technique. A 6 Kiswahili sheath was placed in the right radial artery. 2.5 mg of verapamil, 800 mcg of nitroglycerin, 1mg Lidocaine and therapeutic dose of heparin giving a therapeutic ACT. Guide catheter was used to perform right coronary angiography as well as LAD angiography. A Choice PT extra-support wire was placed distally in the right coronary artery and a nevus FFR catheter was equalized in the left main artery. Nevus catheter was advanced and adenosine was infused per protocol. The adenosine was stopped at 0.78. At this point a 3.5 x 15 mm resolute Eren stent was deployed in the proximal left anterior descending artery at 20 sissy reducing the hemodynamically severe stenosis to 0%. JOHN-3 flow was present before and after the procedure. Following this the wire was removed from the LAD and the guide catheter was placed in the right coronary artery followed by distal placement of the wire. The nevus catheter was equalized in the proximal right coronary artery and the guide catheter was advanced. Adenosine was infused per protocol and the FFR index dropped to 0.74. At this point a 3 mm x 38 mm resolute [place] stent was deployed at 24 sissy reducing the stenosis to 0%. An additional 3 mm x 15 mm resolute [place] stent was placed proximal to this extending back into the ostium of the right coronary artery and deployed at 24 sissy reducing the stenosis. Excellent angiograph results were obtained. At the end of the procedure the apparatus was removed the sheath was removed and hemostasis was achieved using TR banding patient was transferred to the postop putting her stable condition. JOHN-3 flow was present down the dominant right coronary artery before and after the procedure. ANGIOGRAPHIC RESULTS FFR index LAD 0.78 FFR index dominant right coronary artery 0.74 IMPRESSION Hemodynamically severe two-vessel coronary disease Successful stent to the proximal LAD hemodynamically severe disease reduced to 0% with 1 drug-eluting stent Successful stenting of the ostial proximal mid dominant right coronary artery hemodynamically severe disease reduced to 0% with 2 contiguous drug-eluting stents PLAN 1. Dual antiplatelet therapy 2. Continue antianginal medication 3. LDL less than 55 to be achieved with high intensity statin 4. Avoidance of tobacco products 5. Risk factor modification 6. Cardiac rehabilitation Electronically signed by : Edouard Hooks MD 01/09/2022 11:14:48
[2022-01-09 11:43] LABS: CATHL Activated Clotting Time 295 SEC (74-125)
[2022-01-09 11:44] LABS: CATHL Activated Clotting Time 318 SEC (74-125)
--- NOTE | 2022-01-09 14:31 | HMH.PHACLD ---
Jesus Alberto Call has received discharge medication counseling on the following medications: PATIENT IS CURRENTLY TAKING BISOPROLOL 5 MG DAILY, IRBESARTAN 75 MG DAILY, CLOPIDOGREL 75 MG DAILY, ATORVASTATIN 40 MG HS, AND ASPIRIN 81 MG DAILY.
== END 2022-01-09 14:44 | disposition home or self-care (01) ==
LOC: CATHLAB 08:24
PROVIDERS: PCP Emergency Medicine; Visit Provider Internal Medicine
DX: E78.5 Hyperlipidemia, unspecified; I10 Essential (primary) hypertension; I25.118 Atherosclerotic heart disease of native coronary artery with other forms of angina pectoris; R00.2 Palpitations; F17.210 Nicotine dependence, cigarettes, uncomplicated; Z79.899 Other long term (current) drug therapy; I25.2 Old myocardial infarction
CPT/HCPCS: 85347; 92928; 93571; 93572; 99152; 99153; C1725; C1769; C1874; C1876; C9600; J0153; J1644; Q9967

== ENCOUNTER → 2022-01-16 09:29 | Outpatient (CLI) | payer BC, SELFPAY ==
[2022-01-16 10:18] LABS: Basophils # 0.3 K/mm3 (0-0.2); Basophils % 3.1 % (0.1-2.0); Eosinophils # 0.6 K/mm3 (0.0-0.4); Eosinophils % 7.4 % (0.1-12.0); Hematocrit 44.6 % (42.0-52.0); Hemoglobin 15.2 g/dL (14.1-18.0); Lymphocytes # 1.9 K/mm3 (0.7-4.5); Lymphocytes % 21.9 % (10-50); Mean Corpuscular HGB Conc 34.2 g/dL (31.8-35.4); Mean Corpuscular Hemoglobin 31.6 pg (27.0-31.2); Mean Corpuscular Volume 92.5 fl (80-94); Mean Platelet Volume 7.9 fl (7.4-10.4); Monocytes # 0.6 K/mm3 (0.1-1.0); Monocytes % 6.7 % (1.7-9.3); Neutrophils # 5.3 K/mm3 (1.8-7.8); Neutrophils % 60.9 % (37.0-80.0); Platelet Count 337 K/mm3 (142-424); Red Blood Count 4.82 M/mm3 (4.60-6.20); Red Cell Distribution Width 13.5 % (11.5-17.5); White Blood Count 8.7 K/mm3 (4.8-10.8)
[2022-01-16 11:20] LABS: Anion Gap 10.5 mEq/L (5-15); Blood Urea Nitrogen 5 mg/dl (9-20); Calcium 9.4 mg/dl (8.4-10.2); Carbon Dioxide 31 mmol/L (22.0-30.0); Chloride 102 mmol/L (98-107); Estimated Glomerular Filt Rate 104 ml/min (>60); GFR (African American) 125 ML/MIN (>60); Glucose 81 mg/dl (74-100); Potassium 3.5 mmoL/L (3.5-5.1); Sodium 140 mmol/L (136-145)
== END ==
PROVIDERS: Internal Medicine; PCP Emergency Medicine; Visit Provider Physician Assistant
DX: I25.10 Atherosclerotic heart disease of native coronary artery without angina pectoris (principal)
CPT/HCPCS: 36415; 80048; 85025

== ENCOUNTER 2022-01-23 13:54 | Outpatient (RCR) | payer BC, SELFPAY | END 2022-02-15 14:53 | disposition home or self-care (01) | LOC: PT 13:54 | PROVIDERS: Visit Provider Internal Medicine | DX: R06.00 Dyspnea, unspecified (principal); I25.118 Atherosclerotic heart disease of native coronary artery with other forms of angina pectoris; I10 Essential (primary) hypertension; E78.5 Hyperlipidemia, unspecified | CPT/HCPCS: 93798 ==

== ENCOUNTER 2022-09-03 19:05 | Emergency (ER) | payer BC, SELFPAY ==
--- NOTE | 2022-09-03 19:44 | EXP.UTC ---
Discharge Plan Disposition Patient Disposition: Home, Self-Care Condition: Good Prescriptions Prescriptions: New ibuprofen [IBU] 800 mg tablet 800 mg PO Q8HP PRN (Reason: Moderate Pain) Qty: 30 0RF amoxicillin-pot clavulanate 875-125 mg Tablet 1 tab PO Q12H Qty: 20 0RF No Action clopidogrel 75 mg tablet 75 mg PO DAILY Qty: 30 11RF atorvastatin 40 mg tablet 40 mg PO HS Qty: 30 5RF bisoprolol fumarate 5 mg tablet 2.5 mg PO DAILY Qty: 30 5RF irbesartan 75 mg tablet 75 mg PO DAILY Qty: 30 5RF aspirin 81 MG tablet,chewable 81 mg PO DAILY Referrals Follow up/Referrals: Provider,Referral, MD [Primary Care Provider] - See instructions Activity Restrictions/Add. Instructions Additional Instructions/Restrictions: Take ibuprofen for pain. I sent in a prescription for Ibuprofen 800 mg tablets. Take the medications as directed. Follow up with your regular doctor. GO TO THE ER FOR ANY WORSENING SYMPTOMS You have to get in with a dentist and get this tooth taken care of. Please call your dentist in the morning to make an appointment. Clinical Impressions Clinical Impression: Dental abscess Stand Alone Forms Stand Alone Forms: Work/School Release Instructions Patient Instructions: DI for Tooth Abscess Discharge ED Provider: Gordon Hurtado [facility] General Stated complaint: fever,tooth ache Time Seen by Provider: 09/03/22 19:44 History of Present Illness Provider Complaint: He states that he has a decayed tooth that is infected. He has had a history of this tooth bothering him, but over the past 2 days his pain and swelling around the tooth has got much worse. Related Data Home Medications Medication Instructions Recorded Confirmed aspirin 81 mg chewable tablet 81 mg PO DAILY CAD 01/09/22 09/03/22 Previous Rx's Medication Instructions Recorded clopidogrel 75 mg tablet 75 mg PO DAILY CAD #30 tabs 01/17/22 atorvastatin 40 mg tablet 40 mg PO HS Cholesterol #30 tabs 07/27/22 bisoprolol fumarate 5 mg tablet 2.5 mg PO DAILY htn #30 tabs 07/27/22 irbesartan 75 mg tablet 75 mg PO DAILY htn #30 tabs 07/27/22 amoxicillin 875 mg-potassium 1 tab PO Q12H #20 tabs 09/03/22 clavulanate 125 mg tablet ibuprofen 800 mg tablet (IBU) 800 mg PO Q8HP PRN Moderate Pain 09/03/22 #30 tabs Allergies Allergy/AdvReac Type Severity Reaction Status Date / Time No Known Allergies Allergy Verified 09/03/22 20:07 [facility] Disclaimer: The information contained in this section may have been updated after the patient was seen, as this information can be updated by other users. Medical History Atypical angina CAD (coronary artery disease) Dyspnea Fatigue Myocardial infarct Palpitations Social History Smoking Status: Former smoker alcohol intake: never current occupational status: employed Travel in the last 8 weeks: [place] the [place] household members: spouse housing: house current occupational exposures/hazards: No caffeine: Yes ROS Obtained: Yes All systems reviewed & no additional complaints except as documented Constitutional Constitutional: Denies chills and Denies fever(s) Eyes Eyes: Denies eye discharge ENT Ears, Nose, Mouth, and Throat: Denies dizziness, Denies otalgia and Denies sore throat Cardiovascular Cardiovascular: Denies chest pain Respiratory Respiratory: Denies shortness of breath, Denies chest congestion, Denies cough, Denies stridor and Denies wheezing Gastrointestinal Gastrointestingal: Denies nausea or vomiting Musculoskeletal Musculoskeletal: Reports system reviewed and no additional complaints, except as documented and Denies arthralgias Integumentary/Breasts Skin/Breast: Denies rash Neurologic Neurologic: Denies dizziness and Denies paresthesias Allergic/Immunologic Allergic/Immunologic: Denies wheez
[2022-09-03 19:45] VITALS: BP 118/75; PULSE 71; RESP 20; TEMP 36.9; O2SAT 97; BMI 25.0
[2022-09-03 20:45] VITALS: BP 118/75; PULSE 71; RESP 20; TEMP 36.9; O2SAT 97
== END 2022-09-03 20:44 | disposition home or self-care (01) ==
PROVIDERS: Emergency Provider Nurse Practitioner Family
DX: K04.7 Periapical abscess without sinus (principal)
CPT/HCPCS: 96372; 99212; 99213; G0463; J0696

== ENCOUNTER → 2022-10-05 11:00 | Outpatient (CLI) | payer BC, SELFPAY ==
[2022-10-05 19:13] LABS: Basophils # 0.1 K/mm3 (0-0.2); Basophils % 1.3 % (0.1-2.0); Eosinophils # 0.8 K/mm3 (0.0-0.4); Hematocrit 47.4 % (42.0-52.0); Hemoglobin 15.5 g/dL (14.1-18.0); Lymphocytes # 2.4 K/mm3 (0.7-4.5); Lymphocytes % 27.3 % (10-50); Mean Corpuscular HGB Conc 32.8 g/dL (31.8-35.4); Mean Corpuscular Hemoglobin 30.9 pg (27.0-31.2); Mean Corpuscular Volume 94.1 fl (80-94); Mean Platelet Volume 8.8 fl (7.4-10.4); Monocytes # 0.5 K/mm3 (0.1-1.0); Monocytes % 5.1 % (1.7-9.3); Neutrophils % 57.3 % (37.0-80.0); Platelet Count 364 K/mm3 (142-424); Red Blood Count 5.04 M/mm3 (4.60-6.20); Red Cell Distribution Width 13.1 % (11.5-17.5); White Blood Count 8.8 K/mm3 (4.8-10.8)
[2022-10-05 19:44] LABS: Chloride 101 mmol/L (98-107); Potassium 3.2 mmoL/L (3.5-5.1); Sodium 141 mmol/L (136-145)
[2022-10-05 19:46] LABS: Alanine Aminotransferase 17 U/L (12-78); Aspartate Amino Transferase 22 U/L (17-59); Blood Urea Nitrogen 7 mg/dl (9-20); Estimated Glomerular Filt Rate 90 ml/min (>60); GFR (African American) 109 ML/MIN (>60)
[2022-10-05 19:47] LABS: Albumin Level 4.4 g/dl (3.5-5.0); Albumin/Globulin Ratio 1.8 (1.1-1.8); Alkaline Phosphatase 78 U/L (38-126); Anion Gap 14.2 mEq/L (5-15); Bilirubin,Total 0.3 mg/dl (0.2-1.3); Calcium 8.9 mg/dl (8.4-10.2); Carbon Dioxide 29 mmol/L (22.0-30.0); Cholesterol 123 mg/dl (140-200); Globulin 2.4 g/dL (1.3-3.2); Glucose 97 mg/dl (74-100); HDL Cholesterol 31 mg/dl (40-60); Total Protein,Serum 6.8 g/dl (6.3-8.2); Triglycerides 215 mg/dl (30-150); VLDL Cholesterol 43 mg/dL (0-40)
[2022-10-05 19:58] LABS: Direct LDL Cholesterol 80.02 mg/dL (100-129)
[2022-10-05 20:01] LABS: 25-OH Vitamin D, Total < 12.8 ng/mL (30-100)
[2022-10-05 20:02] LABS: Free T4 (Free Thyroxine) 0.93 ng/dl (0.78-2.19)
[2022-10-05 20:16] LABS: Thyroid Stimulating Hormone 1.12 uIU/mL (0.465-4.68)
== END ==
PROVIDERS: PCP Emergency Medicine; Visit Provider Emergency Medicine
DX: R53.83 Other fatigue (principal); E55.9 Vitamin D deficiency, unspecified; Z79.899 Other long term (current) drug therapy
CPT/HCPCS: 80053; 80061; 82306; 84439; 84443; 85025

== ENCOUNTER 2023-07-10 20:02 | Emergency (ER) | payer BC, SELFPAY ==
[2023-07-10] VITALS (8 sets, daily range): BP systolic 110–179; BP diastolic 73–96; PULSE 56–72; RESP 12–16; TEMP 36.5; O2SAT 93–100; BMI 25.0
--- NOTE | 2023-07-10 20:07 | ECG_ITS ---
APPROVED REPORT Exam: Resting ECG HR:58 bpm ECG Measurements Heart Rate 58 AXES WV 124 P 74 QRSd 97 QRS 74 QT 405 T 58 QTc 402 Conclusion SINUS BRADYCARDIA BORDERLINE ECG UNCONFIRMED REPORT Electronically signed by : Tee Eisenberg MD 07/11/2023 14:48:44
--- NOTE | 2023-07-10 20:16 | XR_ITS ---
PROCEDURE INFORMATION: Exam: XR Chest Exam date and time: 07/10/2023 8:31 PM Age: 47 years old Clinical indication: Other: Jaw pain, prior heart attack; Prior surgery; Surgery date: 6+ months; Surgery type: 3 cardiac stents 1993 after having heart attack per patient. ; Additional info: Jaw pressure TECHNIQUE: Imaging protocol: Radiologic exam of the chest. Views: 2 views. COMPARISON: CR XR CHEST 2V 12/03/2021 8:32 PM FINDINGS: Lungs: Lungs are clear aside from a few calcified granulomata. No pulmonary edema or consolidation. Pleural spaces: No pleural effusion. No pneumothorax. Heart/Mediastinum: Cardiomediastinal silhouette is normal. Bones/joints: No acute abnormality. IMPRESSION: No acute findings.
[2023-07-10 20:21] LABS: Basophils # 0.1 K/mm3 (0-0.2); Basophils % 0.8 % (0.1-2.0); Eosinophils # 0.5 K/mm3 (0.0-0.4); Eosinophils % 5.6 % (0.1-12.0); Hematocrit 44.5 % (42.0-52.0); Hemoglobin 15.5 g/dL (14.1-18.0); Lymphocytes # 2.7 K/mm3 (0.7-4.5); Lymphocytes % 27.8 % (10-50); Mean Corpuscular HGB Conc 34.8 g/dL (31.8-35.4); Mean Corpuscular Hemoglobin 31.5 pg (27.0-31.2); Mean Corpuscular Volume 90.4 fl (80-94); Mean Platelet Volume 8.6 fl (7.4-10.4); Monocytes # 0.6 K/mm3 (0.1-1.0); Monocytes % 5.9 % (1.7-9.3); Neutrophils # 5.8 K/mm3 (1.8-7.8); Neutrophils % 59.9 % (37.0-80.0); Platelet Count 299 K/mm3 (142-424); Red Blood Count 4.92 M/mm3 (4.60-6.20); Red Cell Distribution Width 13.1 % (11.5-17.5); White Blood Count 9.7 K/mm3 (4.8-10.8)
[2023-07-10 20:35] LABS: Alanine Aminotransferase 18 U/L (12-78); Albumin Level 4.3 g/dl (3.5-5.0); Albumin/Globulin Ratio 1.6 (1.1-1.8); Alkaline Phosphatase 42 U/L (38-126); Anion Gap 7.9 mEq/L (5-15); Aspartate Amino Transferase 26 U/L (17-59); Bilirubin,Total 0.5 mg/dl (0.2-1.3); Blood Urea Nitrogen 7 mg/dl (9-20); Calcium 8.9 mg/dl (8.4-10.2); Carbon Dioxide 29 mmol/L (22.0-30.0); Chloride 103 mmol/L (98-107); Creatinine Clearance Estimated 116 mL/min (50-200); Estimated Glomerular Filt Rate 103 ml/min (>60); GFR (African American) 125 ML/MIN (>60); Globulin 2.7 g/dL (1.3-3.2); Glucose 95 mg/dl (74-100); Potassium 3.9 mmoL/L (3.5-5.1); Sodium 136 mmol/L (136-145)
--- NOTE | 2023-07-10 20:41 | PC.NURSE ---
patient gone to Xray at this time.
--- NOTE | 2023-07-10 20:44 | PC.NURSE ---
patient back in room at this time.
[2023-07-10 20:56] LABS: Troponin I < 0.01 ng/ml (0.00-0.034)
--- NOTE | 2023-07-10 21:08 | HMH.EDGENADL ---
Discharge Plan Disposition Patient Disposition: Home, Self-Care Chief Complaint: Dizziness Prescriptions Prescriptions: No Action bisoprolol fumarate 5 mg tablet 5 mg PO DAILY Qty: 90 1RF cephalexin 500 mg capsule 500 mg PO TID Qty: 30 0RF atorvastatin 40 mg tablet 40 mg PO HS Qty: 30 5RF clopidogrel 75 mg tablet 75 mg PO DAILY Qty: 30 11RF irbesartan 75 mg tablet 75 mg PO DAILY Qty: 30 5RF aspirin 81 MG tablet,chewable 81 mg PO DAILY ibuprofen [IBU] 800 mg tablet 800 mg PO Q8HP PRN (Reason: Moderate Pain) Qty: 30 0RF Referrals Follow up/Referrals: Shimon West DO [Primary Care Provider] - See instructions Edouard Hooks MD [Staff Physician] - See instructions Activity Restrictions/Add. Instructions Additional Instructions/Restrictions: At this time it was felt you are safe to be discharged home. If new or worsening symptoms please do not hesitate to return the emergency department. Please call and schedule an appointment with cardiology as soon as you are able. Clinical Impressions Clinical Impression: Jaw pain, Chest pain Discharge ED Provider: Duran Sellers General Adult HPI General Chief complaint: Dizziness Stated complaint: dizzy, jaw pain Time Seen by Provider: 07/10/23 20:08 Mode of Arrival: Ambulatory Source of Information: Patient Limitations: No Limitations Description of Symptoms (Recalled from ER Triage Doc. by RN): Pt presents with vertigo that began yesterday around 2pm at work, today he has pressure/cramping in jaw and chest pressure which he believes to be anxiety. Pt has hx of UT back in November 2021 with 3 stents, no issues since then. History of Present Illness HPI narrative: Patient is a 47-year-old male with past medical history of ACS status post stenting who presents emergency department for evaluation of jaw pain and dizziness. History is obtained by patient at bedside. He has had 3 episodes of the last 24 hours of varying severity however he does have slight chest pressure, bilateral ear pressure and jaw pain. He is concerned because jaw pain was the presenting symptom of his previous heart attack. All episodes have occurred at rest. He has transient tunnel vision, no true syncope, no trauma. No other acute complaints at this time. Related Data Home Medications Medication Instructions Recorded Confirmed aspirin 81 mg chewable tablet 81 mg PO DAILY CAD 01/09/22 04/03/23 Previous Rx's Medication Instructions Recorded ibuprofen 800 mg tablet (IBU) 800 mg PO Q8HP PRN Moderate Pain 09/03/22 #30 tabs atorvastatin 40 mg tablet 40 mg PO HS Cholesterol #30 tabs 02/11/23 clopidogrel 75 mg tablet 75 mg PO DAILY CAD #30 tabs 02/11/23 irbesartan 75 mg tablet 75 mg PO DAILY htn #30 tabs 02/11/23 bisoprolol fumarate 5 mg tablet 5 mg PO DAILY htn #90 tabs 03/18/23 cephalexin 500 mg capsule 500 mg PO TID #30 caps 04/03/23 Allergies Allergy/AdvReac Type Severity Reaction Status Date / Time No Known Allergies Allergy Verified 04/03/23 16:25 [facility] Disclaimer: The information contained in this section may have been updated after the patient was seen, as this information can be updated by other users. Medical History Atypical angina CAD (coronary artery disease) Dental abscess Dyspnea Elevated troponin Fatigue Hyperlipidemia Hypertension Myocardial infarct Non-ST elevation [place] (NSTEMI) Palpitations Pre-operative cardiovascular examination Tobacco use Social History Smoking Status: Never smoker alcohol intake: never current occupational status: employed Travel in the last 8 weeks: [place] the [place] household members: spouse housing: house current occupational exposures/hazards: No caffeine: Yes ROS Obtained: Yes Systems reviewed as appropriate & no additional complaints except as documented Physical Exam General General appearance: jg
[2023-07-10 23:31] LABS: Troponin I < 0.01 ng/ml (0.00-0.034)
== END 2023-07-10 23:54 | disposition home or self-care (01) ==
PROVIDERS: Emergency Provider Emergency Medicine; PCP Internal Medicine
DX: R07.9 Chest pain, unspecified (principal); R68.84 Jaw pain; R42 Dizziness and giddiness; I25.118 Atherosclerotic heart disease of native coronary artery with other forms of angina pectoris; E78.5 Hyperlipidemia, unspecified; I10 Essential (primary) hypertension; I25.2 Old myocardial infarction
CPT/HCPCS: 71046; 80053; 84484; 85025; 93005; 99285

== ENCOUNTER 2023-09-18 10:42 | Outpatient (CLI) | payer BC, SELFPAY ==
[2023-09-18 11:06] LABS: Basophils % 0.3 % (0.1-2.0); Eosinophils # 0.7 K/mm3 (0.0-0.4); Hematocrit 48.2 % (42.0-52.0); Lymphocytes # 2.3 K/mm3 (0.7-4.5); Lymphocytes % 18.7 % (10-50); Mean Corpuscular HGB Conc 33.1 g/dL (31.8-35.4); Mean Corpuscular Hemoglobin 31.5 pg (27.0-31.2); Mean Corpuscular Volume 95.1 fl (80-94); Mean Platelet Volume 7.1 fl (7.4-10.4); Monocytes # 0.5 K/mm3 (0.1-1.0); Monocytes % 3.7 % (1.7-9.3); Neutrophils # 8.6 K/mm3 (1.8-7.8); Neutrophils % 71.4 % (37.0-80.0); Platelet Count 347 K/mm3 (142-424); Red Blood Count 5.07 M/mm3 (4.60-6.20); White Blood Count 12.1 K/mm3 (4.8-10.8)
[2023-09-18 11:56] LABS: Chloride 104 mmol/L (98-107)
[2023-09-18 11:57] LABS: Potassium 3.7 mmoL/L (3.5-5.1); Sodium 139 mmol/L (136-145)
[2023-09-18 11:59] LABS: Alanine Aminotransferase 19 U/L (12-78); Anion Gap 5.7 mEq/L (5-15); Aspartate Amino Transferase 23 U/L (17-59); Bilirubin,Unconjugated 0.2 mg/dL (0.0-1.1); Blood Urea Nitrogen 5 mg/dl (9-20); Carbon Dioxide 33 mmol/L (22.0-30.0); Estimated Glomerular Filt Rate 103 ml/min (>60); GFR (African American) 125 ML/MIN (>60)
[2023-09-18 12:00] LABS: Albumin Level 4.2 g/dl (3.5-5.0); Alkaline Phosphatase 75 U/L (38-126); Bilirubin,Direct 0.2 mg/dl (0.0-0.4); Bilirubin,Indirect 0.2 mg/dL (0.0-0.9); Bilirubin,Total 0.4 mg/dl (0.2-1.3); Calcium 9.6 mg/dl (8.4-10.2); Chol/HDL Ratio 4.8 (1-3.5); Cholesterol 125 mg/dl (140-200); Glucose 98 mg/dl (74-100); HDL Cholesterol 26 mg/dl (40-60); Magnesium 1.7 mg/dl (1.6-2.3); Total Protein,Serum 6.6 g/dl (6.3-8.2); Triglycerides 131 mg/dl (30-150); VLDL Cholesterol 26 mg/dL (0-40)
[2023-09-18 12:16] LABS: Free T4 (Free Thyroxine) 0.79 ng/dl (0.78-2.19)
[2023-09-18 12:17] LABS: Direct LDL Cholesterol 82.32 mg/dL (100-129)
== END 2023-09-18 23:59 ==
LOC: LAB 10:43
PROVIDERS: PCP Internal Medicine; Visit Provider Nurse Practitioner Family
DX: I11.9 Hypertensive heart disease without heart failure (principal); I25.10 Atherosclerotic heart disease of native coronary artery without angina pectoris; R42 Dizziness and giddiness; E78.5 Hyperlipidemia, unspecified
CPT/HCPCS: 36415; 80048; 80061; 80076; 83735; 84439; 84443; 85025

== ENCOUNTER 2025-01-11 13:15 | Day surgery (SDC) | payer BC, SELFPAY ==
[2025-01-08 12:01] VITALS: BMI 27.3
[2025-01-11 13:46] VITALS: BP 150/90; PULSE 78; RESP 16; TEMP 36.3; O2SAT 97
[2025-01-11] MEDS: LACTATED RINGERS 1000ML 1,000 ML 25 ML IV (14:07)
--- NOTE | 2025-01-11 14:26 | P.PNANES_ITS ---
[facility] Disclaimer: The information contained in this section may have been updated after the patient was seen, as this information can be updated by other users. Medical History Pre-operative cardiovascular examination Dental abscess Myocardial infarct Fatigue Dyspnea Palpitations Atypical angina CAD (coronary artery disease) Hypertension Non-ST elevation [place] (NSTEMI) Elevated troponin Hyperlipidemia Tobacco use Surgical History History of heart artery stent Family History Other No significant family history Social History (Updated 01/11/25 @ 13:58 by Maria Guadalupe Garcia RN) Smoking Status: Current every day smoker tobacco type: cigarettes packs per day: 1 alcohol intake: former substance use type: denies use current occupational status: employed Travel in the last 8 weeks?: Inside the [place] household members: spouse housing: house current occupational exposures/hazards: No caffeine: Yes [facility] Anesthesia Checklist Patient Identification Patient Identification: Arm Band and Family Structural Data Admitted From: Home Planned Operative Procedure/s: Colonoscopy Consent for Planned Operative Procedure(s) Verified: Yes Verified Documents: History and Physical NPO Status Verified Time NPO: 00:00 Additional verifications Patient : No Anesthesia Reactions: No Hx Blood Transfusions: No Blood Transfusion Reaction: No Cephalosporin Allergy: No Previous Colonoscopy: Yes Airway Assessment Mallampati Score:: Class II C-Spine Mobility Assessed: Yes TMJ Mobility Assessed: Yes Dentition: Good Dentition Neurological Assessment Level of Consciousness: Awake, Alert, Appropriate and Follows Commands Hx Seizures: No Numbness or tingling in extremities: No Anesthesia Plan Anesthesia Risk discussed: Yes ASA Class: III Anesthesia Type: MAC Preoperative Comments Pre-Operative Comments: History of [place]. Stents X3. Hypertension.
--- NOTE | 2025-01-11 15:51 | EXP.HP ---
History of Present Illness *Admission Date: 01/11/25 *Reason for visit:: Positive Cologuard *History of present illness: Mr. Call is a 49-year-old gentleman who is here for screening colonoscopy secondary to a positive Cologuard. The examination is deemed medically necessary for screening colonoscopy. The patient has been seen, interviewed and examined prior to the procedure by both myself and the anesthesia provider. [facility] Disclaimer: The information contained in this section may have been updated after the patient was seen, as this information can be updated by other users. Medical History Pre-operative cardiovascular examination Dental abscess Myocardial infarct Fatigue Dyspnea Palpitations Atypical angina CAD (coronary artery disease) Hypertension Non-ST elevation ND (NSTEMI) Elevated troponin Hyperlipidemia Tobacco use Surgical History History of heart artery stent Family History Other No significant family history Social History (Updated 01/11/25 @ 14:28 by Michael Castelan CRNA) Smoking Status: Current every day smoker tobacco type: cigarettes packs per day: 1 alcohol intake: former substance use type: denies use current occupational status: employed Travel in the last 8 weeks?: Inside the [place] household members: spouse housing: house current occupational exposures/hazards: No caffeine: Yes Have you lived/traveled outside [place] in past 30 days?: No Contact w/someone who lives/traveled outside US past 30 days?: No Exposure to someone with infectious disease in past 14 days?: No Do you have a fever (greater than 100.4 F or 38 C)?: No Have you tested positive for COVID-19?: No Exposed to someone with COVID-19 in past 14 days?: No Do you have a sore throat?: No Do you have a cough?: No Do you have any weakness?: No Are you experiencing any nausea/vomitting?: No Do you have any diarrhea?: No Are you experiencing any unusual bleeding?: No Do you have any muscle aches/pain?: No Do you have any abdominal pain?: No Are you experiencing loss of taste or smell?: No Other Medical History Have you received the Flu Vaccine for this season: Yes Have you received the Pneumonia Vaccine: No Review of Systems Review of Systems Review of systems (narrative): Negative *Cardiovascular Comments: Negative *Gastrointestinal Comments: Negative *Genitourinary Comments: Negative *Musculoskeletal Comments: Negative *Neurologic Comments: Negative Meds Home Medications and Allergies Home Medications ?Medication ?Instructions ?Recorded ?Confirmed ?Type aspirin 81 mg chewable tablet 81 mg PO DAILY CAD 01/09/22 01/11/25 History atorvastatin 40 mg tablet 40 mg PO DAILY #90 tabs 03/18/24 01/11/25 Rx bisoprolol fumarate 5 mg tablet 5 mg PO DAILY htn #90 tabs 03/18/24 01/11/25 Rx clopidogrel 75 mg tablet 75 mg PO DAILY CAD #90 tabs 03/18/24 01/11/25 Rx bupropion HCl 150 mg 24 hr tablet, 150 mg PO ONCE 09/21/24 01/11/25 History extended release cholecalciferol (vitamin D3) 25 25 mcg PO DAILY 09/21/24 01/11/25 History mcg (1,000 unit) tablet escitalopram oxalate 10 mg tablet 10 mg PO DAILY 09/21/24 01/11/25 History (Lexapro) irbesartan 150 mg tablet (Avapro) 150 mg PO DAILY 12/28/24 01/11/25 History sodium,potassium,mag sulfates 17.5 See Rx Instructions PO .COMPLEX 12/29/24 01/11/25 Rx gram-3.13 gram-1.6 gram oral soln #354 mL (Suprep Bowel Prep Kit) mirtazapine 7.5 mg tablet 7.5 mg PO HS 01/08/25 01/11/25 History New Prescriptions to Start Prescriptions: Allergies Allergy/AdvReac Type Severity Reaction Status Date / Time No Known Allergies Allergy Verified 01/11/25 13:59 Exam Data for Last 24 hours Vital signs and Labs for Last 24 Hours: Temp Pulse Resp BP Pulse Ox O2 Del Method 97.3 F L 78 16 150/90 H 97 Room Air 01/11/25 13:46 01/11/25 13:46 01/11/25 13:46 01/11/25 13:46 01/11/25 13:46 01/11/25 13:46 I & O for Last 24 hours: Intake & Output 01/08/25 01/09/25 01/10/25 01/11/25 23:59 23:59 23:59 23:59 Weight 180 lb *Routine HEENT Exam Head: Present normocephalic Eye: Present EOMI and PERRL ENT: Present mucous membranes moist *Routine Neck Exam Neck: Present supple *Routine Respiratory Exam Respiratory: Present CTA bilaterally *Routine Cardiovascular Exam Cardiovascular: Present RRR *Routine Abdominal Exam Abdominal: Present soft and normoactive bowel sounds; Absent tenderness *Routine Rectal Exam Rectal:: deferred *Routine Genitalia Exam Genitalia:: deferred *Routine Extremities Exam Extremities: Absent cyanosis, clubbing or edema *Routine Skin Exam Skin: Present warm; Absent rash *Routine Neurological Exam Neurological: Present alert and oriented X3 Assessment and Plan *Assessment and plan (1) Screening for colon cancer: Status: Acute Category: Medical Code(s): Z12.11 - Encounter for screening for malignant neoplasm of colon (2) Positive colorectal cancer screening using Cologuard test: Status: Acute Category: Medical Code(s): R19.5 - Other fecal abnormalities Plan A/P: 1. Positive Cologuard is the preprocedural diagnosis. The patient will be anesthetized/sedated using MAC sedation. The patient has been seen and examined. Cardiac and lung assessment prior to the examination is stable. Proceed with planned screening colonoscopy.
--- NOTE | 2025-01-11 16:04 | HMH.PROCNOTE ---
[facility] Procedure Note Date: 01/11/25 Time: 16:18 Procedure Note:: Colonoscopy Procedure Report: Colonoscopy with cold snare polypectomy Endoscopist: Tyrone Baker II, MD Referring physician: CORNELIUS Posadas Date of Procedure: January 11, 2025 Equipment: Olympus 190 variable stiffness pediatric colonoscope Sedation: MAC sedation Indication: Mr. Call is a 49-year-old gentleman who is here for screening colonoscopy secondary to a positive Cologuard test. The patient does state that his mother and older brother have had colon polyps. He reports no abdominal pain, weight loss, change in his bowel habits or family history of colon cancer. He has noted some intermittent bright red blood on the tissue which he feels may be hemorrhoidal. Procedure: Prior to the procedure, a history and physical exam was performed, and patient's medications and allergies were reviewed. The risks, benefits and alternatives of the sedation and procedure were discussed with the patient. All questions were answered and informed consent was obtained. The patient was brought to the procedure room. Patient identification and proposed procedure were verified by the physician and the nurse. The patient was placed in a left lateral decubitus position and the scope was passed under direct vision. Throughout the procedure, the patient's blood pressure, pulse, and oxygen saturations were monitored continuously. The colonoscopy was accomplished without difficulty. The patient tolerated the procedure well. Findings: On digital rectal examination there was normal rectal tone. There were no external hemorrhoids. The colonoscope was introduced through the anal canal to the rectum and advanced to the cecum. The ileocecal valve and appendiceal orifice were identified. The scope was advanced a short distance into the ileum which appeared grossly normal. The scope was then withdrawn into the colon. There were 3 polyps in the transverse colon (4, 4 and 5 mm) which were all removed via cold snare polypectomy. The remaining cecum, ascending, transverse, descending, sigmoid and rectum were grossly normal. There were no mucosal abnormalities identified. Upon retroflexion within the rectum there were grade 2 internal hemorrhoids. The preparation was excellent throughout with [place] Preparation Score of 9. The cecal time was 12 minutes. Impression: 1. Diminutive colonic polyps x 3 2. Grade 2 internal hemorrhoids Plan: I will follow-up the polyp histology and recommend repeat surveillance colonoscopy again in 5 years. I would encourage psyllium bulking fiber supplementation on a maintenance basis.
[2025-01-11 16:23] VITALS: BP 98/64; PULSE 87; RESP 20; TEMP 36.2; O2SAT 93
[2025-01-11 16:33] VITALS: BP 104/67; PULSE 75; RESP 20; O2SAT 93
[2025-01-11 16:43] VITALS: BP 119/63; PULSE 85; RESP 18; O2SAT 95
[2025-01-11 16:53] VITALS: BP 140/90; PULSE 83; RESP 18; O2SAT 97
[2025-01-11 17:16] VITALS: BP 122/76; PULSE 78; RESP 18; TEMP 36.2; O2SAT 98
== END 2025-01-11 17:16 | disposition home or self-care (01) ==
PROVIDERS: PCP Nurse Practitioner Family; Visit Provider Internal Medicine Gastroenterology
PROC: 0DJD8ZZ Inspection of Lower Intestinal Tract, Via Natural or Artificial Opening Endoscopic (ICD-10-PCS; CPT 45378; principal; 2025-01-11 15:00)
DX: Z12.11 Encounter for screening for malignant neoplasm of colon (principal); Z83.719 Family history of colon polyps, unspecified; D12.6 Benign neoplasm of colon, unspecified; K64.1 Second degree hemorrhoids; I25.10 Atherosclerotic heart disease of native coronary artery without angina pectoris; E78.5 Hyperlipidemia, unspecified; I10 Essential (primary) hypertension; F17.210 Nicotine dependence, cigarettes, uncomplicated; Z79.82 Long term (current) use of aspirin; Z79.899 Other long term (current) drug therapy
CPT/HCPCS: 45385; J2003; J2704; J7120

== ENCOUNTER 2025-03-05 07:44 | Outpatient (CLI) | payer BC, SELFPAY ==
--- OUTSIDE RECORDS SUMMARY | 2025-03-05 07:46 | XMS_ITS | Clinical Summary ---
Author Organization [facility] Address [address] [place] [id number] Phone [email or web address] Care Team Providers Care Auto Transmission Specialist Name Role Phone No, Provider Primary Care Provider Unavailabl e Allergies No known active allergies Medications irbesartan (AVAPRO) 75 MG tablet TAKE 1 TABLET BY MOUTH ONCE DAILY FOR HYPERTENSION 2 Active clopidogrel (PLAVIX) 75 MG tablet TAKE 1 TABLET BY MOUTH ONCE DAILY FOR CAD 2 Active bisoprolol (ZEBETA) 5 MG tablet TAKE 1 TABLET BY MOUTH ONCE DAILY FOR HYPERTENSION 2 Active atorvastatin (LIPITOR) 40 MG tablet TAKE 1 TABLET BY MOUTH EVERY DAY AT BEDTIME FOR CHOLESTEROL 2 Active ASPIRIN 81 PO CHEW AND SWALLOW 1 TABLET BY MOUTH ONCE DAILY 2 Active Active Problems Problem Noted Date Diagnosed Date Sensorineural hearing loss (SNHL) of both ears 0 12/19/2022 Encounter for occupational health examination Overview (12/25/2017): Sprain of left wrist Trigger index finger of right hand Resolved Problems Problem Noted Date Diagnosed Date Resolved Date Follow-up examination, follo wing other surgery 06/06/2015 06/06/2020 Overview (12/25/2017): Lateral epicondylitis of elbow 08/27/2013 06/06/2020 Overview (12/25/2017): Immunizations Immunization Administration Dates Next Due COVID-19 (Pfizer [place] 12 yrs+) ([id number]) 021,11/10/2020 Social History Tobacco Use Types Packs/Day Years Used Date Smoking Tobacco: Every Day Cigarettes Smokeless Tobacco: Never Alcohol Use Standard Drinks/Week Comments No 0 (1 standard drink = 0.6 oz pur e alcohol) Intimate Partner Violence Answer Date R ecorded Insults You Not on file 11/08/2020 Threatens You Not on file 11/08/2020 Screams at You Not on file 11/08/2020 Physically Hurt Not on file 11/08/2020 Intimate Partner Violence Score Not on file 11/08/2020 Alcohol Use Answer Date Recorded Alcohol Use Status No 11/08/2020 Depression Answer Date Recorded PHQ Total Score 0 05/12/2022 Stress Answer Date Recorded Stress in your Life Not on file 05/31/2024 Dealing with Stress 3 05/31/2024 Sex and Gender Information Value Date Recorded Sex Assigned at Not on file Legal Sex Male 7:53 AM CDT Gender Identity Not on file Sexual Orientation Not on file Last Filed Vital Signs Vital Sign Reading Time Taken Comments Blood Pressure 118/70 12/09/2023 8:18 AM EDT Pulse 75 12/09/2023 8:18 AM EDT Temperature 36.2 C (97.2 F) 12/09/2023 8:18 AM EDT Respiratory Rate 14 12/09/2023 8:18 AM EDT Oxygen Saturation 95% 12/09/2023 8:18 AM EDT Inhaled Oxygen Concentration - - Weight 74.2 kg (163 lb 9.6 oz) 12/09/2023 8:18 A M EDT Height 172.7 cm (5' 8 ) 12/09/2023 8:18 AM EDT Body Mass Index 24.88 12/09/2023 8:18 AM EDT Plan of Treatment Health Maintenance Due Date Last Done Comments CT Colonography 1974 Colonoscopy 1974 Colorectal Cancer Screening Combo 1974 DNA Cologuard 1974 Dental Cleaning/Exam 1974 FIT or FOBT Test 1974 HIV Screening 1974 Hepatitis C Screening 1974 Sigmoidoscopy 1974 Annual Preventive Exam 1992 Hep B Infection Screening - Triple Screen 1992 Hepatitis B Immunization (1 of 3 - 19+ 3-dose series) 1993 Pneumococcal: Ped (0 to 5 Yr s) and At-Risk Member (6 to 64 Yrs) (1 of 2 - PCV) 1993 Tetanus Diphtheria and Pertussis Immunization (1 - Tdap) 1993 Covid-19 Immunization (4 - season) 2024 11/25/2020, 11/10/2020, 10/21/2020 Zoster Immunization (1 of 2) 2024 Influenza Immunization (#1) 03/29/202504/29, 05/30/2019, 04/30/2018 HIB Immunization Aged Out No longer e ligible based on patient's age to complete this topic HPV Immunization Aged Out No longer e ligible based on patient's age to complete this topic Hepatitis A Immunization Aged Out No longer eligible based on patient's age to complete this topic Polio Immunization Aged Out No longer eligible based on patient's age to complete this topic Insurance OPT OUT NO COPAY NB Care Teams Auto Transmission Specialist Relationship Specialty Start Date End Date No, Provider [place] PCP - General Family Medicine 06/09/19
--- NOTE | 2025-03-05 08:00 | CA_ITS ---
APPROVED REPORT EXAM: Comprehensive 2D, Doppler, and color-flow Echocardiogram Head Batcher: Jihan Watson RT(R) Ht: 5 ft 8 in Wt: 195lbs BSA: 2.02 BP: 144/81 mmHg Indications: edema, HFpEF, CAD 2D Dimensions LVEF (Adames's) 52.30 % M: 52 - 72 LV Volume 83.10 mL M: 62 - 150 LV Volume Index 41.1 mL/m2 M: 34 - 74 LA Volume 23.70 mL LA Volume Index 11.73 mL/m2 (M/F) 16-34 EF AP4 50.90 % EF AP2 52.1 % EF BP 52.3 % GL Strain -12.8 % M-Mode Dimensions RVDd 2.47 cm (0.9-2.6) LA Diam 3.12 cm (1.9-4.0) LVDd 4.97 cm (3.5-5.7) LVDs 3.68 cm (3.5-5.7) IVSd 0.57 cm (0.6-1.1) PWd 0.57 cm (0.6-1.1) EF (Teich) 50.80% FS 26.00% EDV (Teich) 116.60 mL ESV (Teich) 57.40 mL LV Diastology E Decel Time 170 (160-240 msec) E/A Ratio 1.0 Mitral Valve MV E Max Giacomo. 73.0 (40-130 cm/s) MV A Velocity 73.0 (40-130 cm/s) E/A Ratio 0.99 MV PHT 50.0 ms Left Ventricle The left ventricle is normal size. Left ventricular systolic function is low-normal. There is increased left ventricular wall thickness. There is normal LV segmental wall motion. Transmitral Doppler flow pattern suggests impaired LV relaxation. LVEF is 50% Right Ventricle The right ventricle is normal size. The right ventricular systolic function is normal. Atria The left atrium size is normal. The right atrium size is normal. There is no color Doppler evidence of interatrial shunt. Aortic Valve The aortic valve opens well. There is no hemodynamically significant aortic valvular stenosis. No aortic regurgitation is present. Mitral Valve The mitral valve is normal in structure. No evidence of mitral valve stenosis. Trace mitral regurgitation is present. Tricuspid Valve The tricuspid valve leaflets are thin and pliable. Trace tricuspid regurgitation. There is insufficient TR jet to estimate RVSP. Pulmonic Valve The pulmonary valve is grossly normal in structure. Trace pulmonic valve regurgitation is present. Great Vessels The aortic root is normal in size. IVC is normal in size and collapses >50% with inspiration. Pericardium There is no pericardial effusion. Other Information Study Quality: Fair Conclusion Low-normal LV systolic function. No significant valvular stenosis or regurgitation. Electronically signed by : Liliya Self MD 03/05/2025 09:35:53
== END 2025-03-05 23:59 | disposition home or self-care (01) ==
LOC: RT 07:45
PROVIDERS: PCP Nurse Practitioner Family; Visit Provider Physician Assistant
DX: I25.10 Atherosclerotic heart disease of native coronary artery without angina pectoris (principal); I11.0 Hypertensive heart disease with heart failure; I50.30 Unspecified diastolic (congestive) heart failure
CPT/HCPCS: 93306